=== PATIENT | female | born 1965 | race Caucasian/White ===

== ENCOUNTER 2022-07-23 19:32 | Emergency (ER) | payer MEDICAID ==
[~2022-07-23] VITALS: Ht 154.9 cm; Wt 68.0 kg
[2022-07-23] MEDS ORDERED: ONDANSETRON HCL 4MG/2ML INJ IV ONE (20:15)
[2022-07-23] MEDS ORDERED: SODIUM CHLORIDE 0.9% 1,000 ML IV ONE (20:15)
[2022-07-23 20:53] LABS: BASOPHILS % 0.4 % (0.0-2.0); EOSINOPHILS % 1.4 % (0.0-5.0); HEMATOCRIT. 41.9 % (36.0-48.0); HEMOGLOBIN. 14.5 g/dL (12.0-16.0); LYMPHOCYTES % 18.9 % (20.0-50.0); MEAN CORPUSCULAR HEMOGLOBIN 31.6 pg (28.0-32.0); MEAN PLATELET VOLUME 8.9 fl (7.4-10.4); MONOCYTES % 5.8 % (2.0-8.0); NEUTROPHILS % 73.5 % (40.0-76.0); PLATELET 234 x1000/uL (130-400); RED CELL DISTRIBUTION WIDTH 13.5 % (11.6-14.6)
[2022-07-23 21:11] LABS: CHLORIDE 105 mEq/L (98-107)
[2022-07-23 21:19] LABS: ETHANOL BLOOD < 10 mg/dL
[2022-07-23] MEDS ORDERED: POTASSIUM CHLORIDE 20MEQ TABLET SR PO ONE (22:00)
[2022-07-23] MEDS ORDERED: KCL 20MEQ/100ML PREMIX 100 ML IV ONE (22:00)
[2022-07-23] MEDS: MAGNESIUM OXIDE 400MG TABLET PO SCH (22:46)
[2022-07-23 22:51] LABS: CLARITY URINE CLEAR (CLEAR); COLOR URINE YELLOW (YELLOW); KETONES URINE NEGATIVE (NEGATIVE); LEUKOCYTE ESTERASE URINE TRACE (NEGATIVE); NITRITE URINE NEGATIVE (NEGATIVE); OCCULT BLOOD URINE NEGATIVE (NEGATIVE); PH URINE 5.5 (4.5-8.0); PROTEIN URINE NEGATIVE (NEGATIVE); SPECIFIC GRAVITY URINE 1.012 (1.005-1.030); UROBILINOGEN URINE 0.2 E.U./dL (0.2-1.0)
[2022-07-23 23:04] LABS: *AMPHETAMINES SCREEN URINE NEGATIVE (NEGATIVE); *BARBITURATES SCREEN URINE NEGATIVE (NEGATIVE); *BENZODIAZEPINES SCREEN URINE NEGATIVE (NEGATIVE); *COCAINE SCREEN URINE NEGATIVE (NEGATIVE); CANNABINOID URINE SCREEN NEGATIVE (NEGATIVE); METHADONE URINE SCREEN NEGATIVE (NEGATIVE); OPIATES URINE SCREEN NEGATIVE (NEGATIVE); PHENCYCLIDINE URINE SCREEN NEGATIVE (NEGATIVE)
[2022-07-24 01:26] LABS: CHLORIDE 110 mEq/L (98-107)
[2022-07-24] MEDS ORDERED: ACETAMINOPHEN 325MG TABLET PO STA (06:31)
[2022-07-24] MEDS: MAGNESIUM OXIDE 400MG TABLET PO SCH (10:28)
[2022-07-24] MEDS ORDERED: SERTRALINE HCL 25MG TABLET PO SCH (10:30)
[2022-07-25] MEDS ORDERED: POTASSIUM CHLORIDE 20MEQ TABLET SR PO NR (00:15)
[2022-07-25] MEDS ORDERED: LISINOPRIL 20MG TABLET PO ONE (02:15)
[2022-07-25 15:40] VITALS: BP 152/94
== END 2022-07-25 20:18 | disposition left against medical advice (07) ==
LOC: ER 19:32
DX: T39.391A Poisoning by other nonsteroidal anti-inflammatory drugs [NSAID], accidental (unintentional), initial encounter (principal); Y92.89 Other specified places as the place of occurrence of the external cause; F32.9 Major depressive disorder, single episode, unspecified; T14.91XA Suicide attempt, initial encounter; X58.XXXA Exposure to other specified factors, initial encounter; I10 Essential (primary) hypertension; Z20.822 Contact with and (suspected) exposure to COVID-19
CPT/HCPCS: 36415; 80048; 80053; 80305; 80307; 80320; 80329; 81003; 83690; 84484; 85025; 87426; 96361; 96365; 96366; 96375; 99284; C9803; J2405; J3480; J7030; Z7610; G0480